=== PATIENT | male | born 1945 | race Caucasian/White ===

== ENCOUNTER 2016-06-15 21:19 | Emergency (ER) | payer OTHER ==
[2016-06-15 21:36] VITALS: BP 137/75; PULSE 82; TEMP 98; BMI 26.3
--- NOTE | 2016-06-15 22:18 | PDOC ---
History of Present Illness - General History Source: Patient Exam Limitations: No Limitations - History of Present Illness Initial Comments: 06/15/16 22:32 The patient is a 70 year old male with no significant past medical history who presents to the ED with sudden onset of right upper quadrant pain that began today. Patient reports he developed right upper quadrant pain around 4pm today with associated nausea and one episode of nonbloody vomiting. Denies diarrhea. He also denies any recent travels or sick contacts. The patient denies fever, chills, cough, SOB, chest pain, and palpitations. <Maggi Owens - Last Filed: 06/15/16 22:32> - General History Source: Patient <Christiano Weaver - Last Filed: 06/16/16 00:35> - General Chief Complaint: Pain Stated Complaint: PAIN Time Seen by Provider: 06/15/16 22:15 Past History <Maggi Owens - Last Filed: 06/15/16 22:32> - Past Medical History Other medical history: polio - Psycho/Social/Smoking Cessation Hx Suicidal Ideation: No Smoking History: Never smoked Number of Cigarettes Smoked Daily: 0 Information on smoking cessation initiated: No Hx Alcohol Use: No Drug/Substance Use Hx: No <Christiano Weaver - Last Filed: 06/16/16 00:35> - Past Medical History Allergies/Adverse Reactions: Allergies Allergy/AdvReac Type Severity Reaction Status Date / Time No Known Allergies Allergy Verified 06/15/16 21:33 Home Medications: Ambulatory Orders Ondansetron [Zofran *Odt*] 4 mg SL TID #30 od.tablet 06/16/16 Pantoprazole Sodium [Protonix] 40 mg PO DAILY #30 tablet. 06/16/16 Review of Systems - Review of Systems Able to Perform ROS?: Yes Comments:: 06/15/16 22:32 CONSTITUTIONAL: Absent: fever, no chills, no fatigue EYES: Absent: visual changes ENT: Absent: ear pain, no sore throat CARDIOVASCULAR: Absent: chest pain, no palpitations RESPIRATORY: Absent: cough, no SOB GI: +right upper quadrant pain, nausea, vomiting Absent: no constipation, no diarrhea GENITOURINARY: Absent: dysuria, no frequency, no hematuria MUSCULOSKELETAL: Absent: back pain, no arthralgia, no myalgia SKIN: Absent: rash NEURO: Absent: headache <Maggi Owens - Last Filed: 06/15/16 22:32> *Physical Exam - Vital Signs Last Vital Signs Temp Pulse Resp BP Pulse Ox 98.0 F 82 14 137/75 98 06/15/16 21:33 06/15/16 21:33 06/15/16 21:33 06/15/16 21:33 06/15/16 21:33 - Physical Exam Comments: 06/15/16 22:33 GENERAL: Well-appearing, well-nourished. No apparent distress. HEENT: Normocephalic, atraumatic. PERRL, EOM intact. CARDIOVASCULAR: Normal S1, S2. Regular rate and rhythm. PULMONARY: Clear to auscultation bilaterally. ABDOMEN: Soft, non-distended, right upper quadrant tenderness. EXTREMITIES: Normal ROM in all four extremities. No gross deformities. SKIN: Warm, dry. No rash NEUROLOGICAL: No focal neurological deficits. <Maggi Owens - Last Filed: 06/15/16 22:32> - Vital Signs Last Vital Signs Temp Pulse Resp BP Pulse Ox 98.0 F 82 14 137/75 98 06/15/16 21:33 06/15/16 21:33 06/15/16 21:33 06/15/16 21:33 06/15/16 21:33 <Christiano Weaver - Last Filed: 06/16/16 00:35> ED Treatment Course - LABORATORY CBC & Chemistry Diagram: 06/15/16 23:31 06/15/16 23:31 <Christiano Weaver - Last Filed: 06/16/16 00:35> Medical Decision Making - Medical Decision Making 06/16/16 00:33 Dr. Weaver: The scribe's documentation has been prepared under my direction and personally reviewed by me in its entirery. I confirm that the note above accurately reflects all work, treatment, procedures, and medical decision making performed by me. <Christiano Weaver - Last Filed: 06/16/16 00:35> *DC/Admit/Observation/Transfer - Attestations Scribe Attestion: 06/15/16 22:33 Documentation prepared by Maggi Owens, acting as medical office rep for Christiano Weaver MD <DavinaMaggi bruno - Last Filed: 06/15/16 22:32> - Discharge Dispostion Admit: No <Christiano Weaver - Last Filed: 06/16/16 00:35> Diagnosis at time of Disposition: Gallstones - Discharge Dispostion Disposition: HOME Condition at time of disposition: Stable - Prescriptions Prescriptions: Pantoprazole Sodium [Protonix] 40 mg PO DAILY #30 tablet. Ondansetron [Zofran *Odt*] 4 mg SL TID #30 od.tablet - Referrals Referrals: Bora Salcido [Non Staff, Medical] - Balwinder Schwartz MD [Staff Physician] - Haseeb Barboza MD [Staff Physician] - - Patient Instructions Printed Discharge Instructions: DI for Gallstones Additional Instructions: Please follow up with your doctor and get referrals for eventual treatment. Take medication as directed. Print Language: SOU[place] KOREAN
[2016-06-15 23:38] LABS: BASOPHIL 0.3 % (0-2.0); EOSINOPHIL 0.1 % (0-4.5); MCH 28.8 pg (25.7-33.7); MEAN CELL VOLUME 84.7 fl (80-96); MEAN PLT VOLUME 8.4 fl (7.5-11.1); NEUTROPHILS 86.9 % (42.8-82.8); PLATELET COUNT 287 K/MM3 (134-434); RDW 13.2 % (11.9-15.9); WHITE BLOOD COUNT 14.6 K/mm3 (4.0-10.0)
[2016-06-16 00:06] LABS: ALBUMIN 3.9 g/dl (3.4-5.0); AMYLASE 80 U/L (25-115); ANION GAP 11 (8-16); CALCIUM 8.5 mg/dL (8.5-10.1); CO2 27 mmol/L (21-32); GLUCOSE,RANDOM 128 mg/dL (74-106); MAGNESIUM 2.1 mg/dL (1.8-2.4)
[2016-06-16 00:09] LABS: ALK PHOS 108 U/L (45-117); BILIRUBIN,TOTAL 0.6 mg/dL (0.2-1.0); CREATININE 0.7 mg/dL (0.7-1.3); SGOT/AST 23 U/L (15-37); SGPT/ALT 28 U/L (12-78); TOT PROT 7.5 g/dl (6.4-8.2)
[2016-06-16 00:18] LABS: INR 1.08 (0.82-1.09); PROTHROMBIN TIME (PATIENT) 11.9 SEC (9.98-11.88)
== END 2016-06-16 00:41 | disposition home or self-care (01) ==
LOC: JER 21:19
DX: K80.20 Calculus of gallbladder without cholecystitis without obstruction (principal)
CPT/HCPCS: 36415; 76705-TC; 80053; 82150; 83690; 83735; 85025; 85610; 99282-25

== ENCOUNTER 2016-07-29 21:29 | Emergency (ER) | payer OTHER ==
[2016-07-29 22:04] VITALS: BP 157/81; PULSE 82; TEMP 99
--- NOTE | 2016-07-29 23:51 | PDOC ---
History of Present Illness - General Chief Complaint: Injury Stated Complaint: FALL/INJURY Time Seen by Provider: 07/29/16 23:14 - History of Present Illness Initial Comments: 07/29/16 23:40 CHIEF COMPLAINT: laceration to scalp HISTORY OF PRESENT ILLNESS: 70 yo M presents to ED s/p fall. Patient and son state he tripped and fell back, they deny any LOC or change in mental status. Denies vomiting, dizziness, headache. No recent travel or sick contacts. PAST MEDICAL HISTORY: Denies past medical history FAMILY HISTORY: Denies SOCIAL HISTORY: Denies tobacco, alcohol, illicit drug use. SURGICAL HISTORY: Denies ALLERGIES: No known drug allergies REVIEW OF SYSTEMS General/Constitutional: Denies fever or chills. Denies weakness, weight change. HEENT: "I hit my head when I fell." Denies change in vision. Denies ear pain or discharge. Denies sore throat. Cardiovascular: Denies chest pain or shortness of breath. Respiratory: Denies cough, wheezing, or hemoptysis. Gastrointestinal: Denies nausea, vomiting, diarrhea or constipation. Denies rectal bleeding. Genitourinary: Denies dysuria, frequency, or change in urination. Musculoskeletal: Denies joint or muscle swelling or pain. Denies neck or back pain. Skin and breasts: Denies rash or easy bruising. Neurologic: Denies headache, vertigo, loss of consciousness, or loss of sensation. PHYSICAL EXAM General Appearance: Well-appearing, appropriately dressed. No apparent distress , no intoxication. HEENT: 2 cm laceration to occipital scalp. EOMI, PERRLA, normal ENT inspection, normal voice, TMs normal, pharynx normal. No conjunctival pallor. No photophobia, scleral icterus. Neck: Supple. Trachea midline. No tenderness, rigidity, carotid bruit, stridor , lymphadenopathy, or thyromegaly. Respiratory/Chest: Lungs CTAB. No shortness of breath, chest tenderness, respiratory distress, accessory muscle use. No crackles, rales, rhonchi, stridor , wheezing, dullness Cardiovascular: RRR. S1, S2. No JVD, murmur, bradycardia, tachycardia. Vascular Pulses: Dorsalis-Pedis (R): 2+, Dorsalis-Pedis (L): 2+ Gastrointestinal/Abdominal: Normal bowel sounds. Abdomen soft, non-distended. No tenderness or rebound tenderness. No organomegaly, pulsatile mass, guarding , hernia, hepatomegaly, splenomegaly. Lymphatic: No adenopathy, tenderness. Musculoskeletal/Extremities: Normal inspection. FROM of all extremities, normal capillary refill. Pelvis Stable. No CVA tenderness. No tenderness to extremities, pedal edema, swelling, erythema or deformity. Integumentary: Appropriate color, dry, warm. 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 Fully oriented, alert. Appropriate mood/affect. Motor strength 5/5. No appreciable EOM palsy, facial droop or sensory deficit. Past History - Past Medical History Allergies/Adverse Reactions: Allergies Allergy/AdvReac Type Severity Reaction Status Date / Time No Known Allergies Allergy Verified 07/29/16 22:01 Home Medications: Ambulatory Orders Acetaminophen [Tylenol] 650 mg PO PRN PRN 06/16/16 Ondansetron [Zofran *Odt*] 4 mg SL TID #30 od.tablet 06/16/16 Pantoprazole Sodium [Protonix] 40 mg PO DAILY #30 tablet. 06/16/16 HTN: Yes - Psycho/Social/Smoking Cessation Hx Suicidal Ideation: No Smoking History: Never smoked Number of Cigarettes Smoked Daily: 0 Hx Alcohol Use: No Drug/Substance Use Hx: No *Physical Exam - Vital Signs Last Vital Signs Temp Pulse Resp BP Pulse Ox 99 F 82 18 157/81 97 07/29/16 22:02 07/29/16 22:02 07/29/16 22:02 07/29/16 22:02 07/29/16 22:02 Procedures - Consent Consent obtained: Verbal - Laceration/Wound Repair Upper Posterior Head Wound Length: to 2.5 cm Wound Explored: clean Wound's Depth, Shape: superficial Irrigated w/ Saline: Yes Wound Repaired With: [place] Medical Decision Making - Medical Decision Making 70 yo M presents to ED s/p fall and lac to head. Lac repair performed (see procedure note). Head CT negative for acute pathology. Advised patient post lac repair instructions, to return in 7-14 days for staple removal and of signs and symptoms for return to ER; patient and son verbalize understanding and agree to plan. *DC/Admit/Observation/Transfer Diagnosis at time of Disposition: Fall Qualifiers: Encounter type: initial encounter Qualified Code(s): W19.XXXA - Unspecified fall, initial encounter Scalp laceration Qualifiers: Encounter type: initial encounter Qualified Code(s): S01.01XA - Laceration without foreign body of scalp, initial encounter - Discharge Dispostion Disposition: HOME Condition at time of disposition: Stable Admit: No - Referrals Referrals: Dion Bojorquez MD [Staff Physician] - - Patient Instructions Printed Discharge Instructions: DI for Laceration Repair -- [place] Additional Instructions: Please keep jonna clean and dry for 24-48 hours. Afterwards you may wash with mild soap/shampoo. Please return in 7-14 days for staple removal. If you experience any fever, nausea, vomiting, diarrhea, change in vision or difficulty speaking, swallowing, or walking, or you you notice redness, swelling , or warmth to the site of injury, or you develop any new or worsening symptoms , please return to the ER. Mantenga las grapas limpias y secas robyn la proxima 24-48 horas. Depues se puede evie con david suave / champ. Vuelva por favor en 7-14 gonzalez para la eliminacin de la grapa. Si experimenta fiebre, nuseas, vmitos, diarrea, cambios en la visin o dificultad para hablar, tragar o caminar, o si nota enrojecimiento, hinchazn o calor en el sitio de la lesin, o si desarrolla s ntomas nuevos o que empeoran, por favor Regresar a la lita de emergencias. Print Language: ITALIAN
[2016-07-30] MEDS ORDERED: LIDOCAINE 1%/EPI 1:100000 (50 ML MULTI DOSE VIAL) ONE (00:35)
== END 2016-07-30 00:48 | disposition home or self-care (01) ==
LOC: JER 21:29
PROC: 0HQ0XZZ Repair Scalp Skin, External Approach (ICD-10-PCS; principal; 2016-07-29)
DX: S01.01XA Laceration without foreign body of scalp, initial encounter (principal); W18.2XXA Fall in (into) shower or empty bathtub, initial encounter; Y93.E1 Activity, personal bathing and showering; Y92.012 Bathroom of single-family (private) house as the place of occurrence of the external cause; I10 Essential (primary) hypertension
CPT/HCPCS: 70450-TC; 99283-25

== ENCOUNTER 2016-08-10 12:04 | Emergency (ER) | payer OTHER ==
[2016-08-10 12:18] VITALS: BP 145/83; PULSE 95; TEMP 97.9; BMI 28.8
--- NOTE | 2016-08-10 13:38 | PDOC ---
Suture Removal/Wound Check HPI - History of Present Illness Chief Complaint: Suture/Staple Removal(Here) Stated Complaint: SUTURES REMOVAL Time Seen by Provider: 08/10/16 13:04 History Source: Yes: Patient Exam Limitations: Yes: No Limitations Treated at: [facility] Date of Last ED visit: 07/30/16 - Previous ED Treatment Type of procedure performed on last visit: Yes: Laceration Repair Tetanus Immunization: Yes: Up to Date Past History - Past Medical History Allergies/Adverse Reactions: Allergies No Known Allergies Allergy (Verified 08/10/16 12:18) Home Medications: Ambulatory Orders Acetaminophen [Tylenol] 650 mg PO PRN PRN 06/16/16 Ondansetron [Zofran *Odt*] 4 mg SL TID #30 od.tablet 06/16/16 Pantoprazole Sodium [Protonix] 40 mg PO DAILY #30 tablet. 06/16/16 General: Yes: no pertinent history - Social History Smoking Status: Never smoked Number of Ciarettes Per Day: 0 Suture Removal/Wound Check PE - Physical Exam Laceration/Wound Check Symptoms: reports: None *Review of Systems - Review of Systems Able to Perform ROS?: Yes Constitutional: No: Symptoms Reported HEENTM: No: Symptoms Reported Respiratory: No: Symptoms reported Cardiac (ROS): No: Symptoms Reported ABD/GI: No: Symptoms Reported : No: Symptoms Reported Musculoskeletal: No: Symptoms Reported Integumentary: Yes: Symptoms Reported Procedures - Additional Procedures Progress: 08/10/16 13:37 3 jonna removed, wound is clean and dry intact no drainage Medical Decision Making - Medical Decision Making 08/10/16 13:37 cc: staple removal left parietal area CDI well healed laceration 3 jonna removed without diffuculty. *DC/Admit/Observation/Transfer Diagnosis at time of Disposition: Removal of staple - Discharge Dispostion Disposition: HOME Condition at time of disposition: Good - Patient Instructions Additional Instructions: wash hair and shower as normal routine you may resume normal activity
== END 2016-08-10 13:41 | disposition home or self-care (01) ==
LOC: JERFT 12:04
DX: Z48.02 Encounter for removal of sutures (principal)
CPT/HCPCS: 99281-25

== ENCOUNTER 2018-08-24 11:50 | Inpatient (IN) | payer MEDICARE, OTHER ==
--- NOTE | 2018-08-24 12:23 | PDOC ---
History of Present Illness - General Chief Complaint: Lightheaded Stated Complaint: DIZZINESS Time Seen by Provider: 08/24/18 12:22 - History of Present Illness Initial Comments: 72 year old male with PMH of HTN and HLD presenting with 3 days of intermittent "room-shifting" sensation worse with movement and co-presenting with mild nausea. Patient states that he stood up from sitting and felt the room was shifting. The symptoms have been intermittent and occasionally completely resolves. He has a mild headache on the most superior portion of his head. Denies chest pain, vomiting, palpitations, FND, visual deficit, or other symptoms. 08/24/18 12:45 Past History - Past Medical History Allergies/Adverse Reactions: Allergies Allergy/AdvReac Type Severity Reaction Status Date / Time No Known Allergies Allergy Verified 08/24/18 11:53 Home Medications: Ambulatory Orders Acetaminophen [Tylenol] 650 mg PO PRN PRN 06/16/16 Ondansetron [Zofran *Odt*] 4 mg SL TID #30 od.tablet 06/16/16 Pantoprazole Sodium [Protonix] 40 mg PO DAILY #30 tablet. 06/16/16 COPD: No HTN: Yes - Suicide/Smoking/Psychosocial Hx Smoking History: Never smoked Number of Cigarettes Smoked Daily: 0 Hx Alcohol Use: No Drug/Substance Use Hx: No Substance Use Type: None Review of Systems - Review of Systems Constitutional: No: See HPI, Chills, Diaphoresis, Fever HEENTM: No: Eye Pain, Blurred Vision, Tearing Respiratory: No: Cough, Orthopnea, Shortness of Breath Cardiac (ROS): No: Chest Pain, Edema, Irregular Heart Rate ABD/GI: Yes: Nausea. No: Diarrhea, Vomiting : No: Burning, Dysuria, Discharge, Frequency Musculoskeletal: No: Back Pain, Gout, Joint Pain Integumentary: No: Bruising, Erythema, Flushing Neurological: Yes: Headache, Dizziness. No: Numbness, Paresthesia Psychiatric: No: Anxiety, Depression Hematologic/Lymphatic: No: Anemia, Blood Clots, Easy Bleeding *Physical Exam - Vital Signs Last Vital Signs Temp Pulse Resp BP Pulse Ox 98.2 F 63 64 H 144/90 97 08/24/18 11:53 08/24/18 11:53 08/24/18 11:53 08/24/18 11:53 08/24/18 11:53 - Physical Exam General Appearance: Yes: Nourished, Appropriately Dressed. No: Apparent Distress HEENT: positive: EOMI, KATE, Normal ENT Inspection. negative: Normal Voice Neck: positive: Trachea midline, Normal Thyroid, Supple. negative: Tender, Rigid Respiratory/Chest: positive: Lungs Clear, Normal Breath Sounds. negative: Chest Tender, Respiratory Distress Cardiovascular: positive: Regular Rhythm, Regular Rate Gastrointestinal/Abdominal: positive: Normal Bowel Sounds, Flat, Soft. negative : Tender Lymphatic: negative: Adenopathy, Tenderness Musculoskeletal: negative: Normal Inspection, Decreased Range of Motion Extremity: positive: Normal Capillary Refill, Normal Inspection, Normal Range of Motion. negative: Tender Integumentary: positive: Normal Color, Dry, Warm Neurologic: positive: Fully Oriented, Alert, Normal Mood/Affect, Normal Response , Motor Strength 07/16 ED Treatment Course - LABORATORY CBC & Chemistry Diagram: 08/24/18 13:00 08/24/18 13:00 Medical Decision Making - Medical Decision Making 72 year old male with HTN and HLD presenting with intermittent vertiginous symptoms for the past three days. No FND, paresthesias, visual symptoms, or weakness. Labs, EKG, and CT head are non-acute. Patient vomited first dose of meclizine and was hydrated with 1 L NS and feels mildly improved overall but still nauseous. Given zofran 4 IV and 1 mg Ativan IV with plan to repeat dose of meclizine. Discussed with Dr. Chaudhary of Neurology and he agrees with plan. He does nto feel that this patient needs an MRI at this point in time. 08/24/18 14:47
[2018-08-24] MEDS ORDERED: MECLIZINE HCL 12.5 MG TABLET PO ONE (12:44)
[2018-08-24] MEDS ORDERED: SODIUM CHLORIDE 0.9% 500 ML INFUS.BAG IV ONE (13:04)
[2018-08-24] MEDS: MECLIZINE HCL 25 MG TABLET (FP) PO ONE (13:05)
[2018-08-24] MEDS ORDERED: MECLIZINE HCL 25 MG TABLET (FP) ONE (13:10)
[2018-08-24 13:22] LABS: BASO % 0.2 % (0-2.0); EOS % 0.6 % (0-4.5); HEMATOCRIT 44.1 % (35.4-49); LYMPH % 13.3 % (8-40); MCH 29.8 pg (25.7-33.7); MEAN CELL VOLUME 87.5 fl (80-96); MEAN PLT VOLUME 8.9 fl (7.5-11.1); MONO % 6.3 % (3.8-10.2); NEUT % 79.6 % (42.8-82.8); RBC 5.04 M/mm3 (4.00-5.60); RDW 13.5 % (11.9-15.9); WHITE BLOOD COUNT 10.5 K/mm3 (4.0-10.0)
[2018-08-24 13:28] LABS: PLATELET COUNT 297 K/MM3 (134-434)
[2018-08-24 13:33] LABS: INR 1.11 (0.83-1.09); PROTHROMBIN TIME (PATIENT) 13.1 SEC (9.7-13.0)
[2018-08-24 13:41] LABS: ALBUMIN 3.9 g/dl (3.4-5.0); BILIRUBIN,TOTAL 0.6 mg/dL (0.2-1); BLOOD UREA NITROGEN 15.2 mg/dL (7-18); CALCIUM 8.8 mg/dL (8.5-10.1); CREATININE 0.8 mg/dL (0.55-1.3); POTASSIUM 4.1 mmol/L (3.5-5.1); TOT PROT 7.4 g/dl (6.4-8.2)
[2018-08-24] MEDS ORDERED: ONDANSETRON 4 MG/2 ML VIAL IVPUSH ONE (13:59)
[2018-08-24] MEDS ORDERED: ONDANSETRON 4 MG/2 ML VIAL ONE (14:07)
[2018-08-24] MEDS ORDERED: MECLIZINE HCL 25 MG TABLET (FP) PO ONE (14:13)
[2018-08-24] MEDS ORDERED: LORazepam 2 MG/ML SDV VIAL ONE (15:23)
--- NOTE | 2018-08-24 17:25 | PDOC ---
Documentation entered by Alfonso Swanson SCRIBE, acting as scribe for Emilia Barrett MD. Emilia Barrett MD: This documentation has been prepared by the [place] Daniel, SCRIBE, under my direction and personally reviewed by me in its entirety. I confirm that the documentation accurately reflects all work, treatment, procedures, and medical decision making performed by me. Attending Attestation - Resident Resident Name: Diaz Mckeon - ED Attending Attestation I have performed the following: I have examined & evaluated the patient, The case was reviewed & discussed with the resident, I agree w/resident's findings & plan, Exceptions are as noted - HPI HPI: 08/24/18 12:42 The patient is a 72 year old male with a past medical history of HTN and HLD here today for evaluation of room shifting sensation. The patient reports that his symptoms started 3 days ago after standing up from a sitting position and describes it as the room shifting around him that is worse with positional changes. He also notes that he has a mild gradual onset posterio-superior headache that started yesterday and mild nausea with decreased PO intake. Patient denies focal weakness/numbness. Denies fever, chills. Denies chest pain , palpitations, shortness of breath. Denies vomiting, diarrhea, abdominal pain. Denies urinary sxs. Allergies: NKA - Physicial Exam PE: 08/24/18 17:13 GENERAL: Awake, alert, and fully oriented, appears uncomfortable with eyes closed EYES: PERRLA, EOMI, sclera anicteric, conjunctiva clear. +3-4 beats nystagmus on R gaze ENT: Oropharynx clear without exudates. Moist mucosa NECK: Normal ROM, supple, no lymphadenopathy, JVD, or masses LUNGS: Breath sounds equal, clear to auscultation bilaterally. No wheezes, and no crackles HEART: Regular rate and rhythm, normal S1 and S2, no murmurs, rubs or gallops ABDOMEN: Soft, nontender, normoactive bowel sounds. No guarding, no rebound. No masses EXTREMITIES: Normal range of motion, no edema. No cords, erythema, or tenderness NEUROLOGICAL: Normal speech, cranial nerves intact, negative pronator drift, 5/ 5 strength in all 4 extremities, normal sensation to light touch in all 4 extremities, difficulty with FNF, ataxic gait, normal tone SKIN: Warm, Dry, normal turgor, no rashes or lesions noted. - Medical Decision Making 08/24/18 17:16 72yo M hx HTN, HL presents to the ED with unsteady gait, nystagmus, gradual onset headache Vitals wnl (RR documented as 64, but this was HR. His RR is 18) Exam with unsteady gait, some difficulty with FNF, and nystagmus that self extinguishes Concern for BPPV vs CVA Labs, CTH unremarkable Despite meclizine, zofran, ativan, pt continues to be unsteady on his feet Plan for admission, MRI, and neuro c/s (case discussed with Dr. Kuhn by Dr. Mckeon) 08/24/18 18:00 Case discussed with resident physician Dr. Vishal Conway, pt accepted for admission to Dr. Ghotra. Case discussed in detail with admitting physician including history, physical exam and ancillary studies. Admitting physician has assumed care for the patient, will follow all pending diagnostics and will complete the evaluation and treatment. 08/24/18 18:08 MRI done, pt back in ED Pt is currently being evaluated by inpt team at the bedside Heart Score/ECG Review #1 08/24/18 17:23 Twelve-lead EKG was performed and reviewed by me. Normal sinus rhythm, rate 67. Normal axis and intervals. No ST elevations. Diffuse T-wave flattening inferiorly and laterally. No previous EKG to compare.
--- NOTE | 2018-08-24 18:40 | HP ---
CHIEF COMPLAINT: Dizziness + Unsteady Gait HISTORY OF PRESENT ILLNESS: Pt is a 72 y/o M with a significant past medical history of HLD and HTN who presented to [facility] due to a 3 day h/o vertiginous symptoms. Pt endorses that he has been experiencing nausea and vomiting, particularly when he is ambulating and on his feet. Pt's symptoms are partially relieved when he is supine and immobile. Pt states he has not tried any OTC medication to relieve his symptoms; furthermore, pt states he has never experienced these symptoms before. Denies any recent illnesses. Denies chest pain, palpitations, shortness of breath, or sick contacts. Endorses burning with urination x 8 days. PMH as above Social: Former Smoker. Smoked 1 PPDx 25 years. Quit 20 years ago. Previous heavy drinker. Cannot quantity, states " a lot". Denies illciit drug use. FH: Non-Contributory SurgHx: Denies Allergies: Denies ER course was notable for: (1) 2 L NS (2) Zofran, Meclizine (3) CT Head Neg HOME MEDICATIONS: Home Medications Medication Instructions Recorded Acetaminophen [Tylenol] 650 mg PO PRN PRN 06/16/16 Ondansetron [Zofran *Odt*] 4 mg SL TID #30 od.tablet 06/16/16 Pantoprazole Sodium [Protonix] 40 mg PO DAILY #30 tablet. 06/16/16 REVIEW OF SYSTEMS CONSTITUTIONAL: Absent: fever, chills, diaphoresis, generalized weakness, malaise, loss of appetite, weight change HEENT: Absent: rhinorrhea, nasal congestion, throat pain, throat swelling, difficulty swallowing, mouth swelling, ear pain, eye pain, visual changes CARDIOVASCULAR: Absent: chest pain, syncope, palpitations, irregular heart rate, lightheadedness , peripheral edema RESPIRATORY: Absent: cough, shortness of breath, dyspnea with exertion, orthopnea, wheezing, stridor, hemoptysis GASTROINTESTINAL: Absent: abdominal pain, abdominal distension, nausea, vomiting, diarrhea, constipation, melena, hematochezia GENITOURINARY: Absent: dysuria, frequency, urgency, hesitancy, hematuria, flank pain, genital pain MUSCULOSKELETAL: Absent: myalgia, arthralgia, joint swelling, back pain, neck pain SKIN: Absent: rash, itching, pallor HEMATOLOGIC/IMMUNOLOGIC: Absent: easy bleeding, easy bruising, lymphadenopathy, frequent infections ENDOCRINE: Absent: unexplained weight gain, unexplained weight loss, heat intolerance, cold intolerance NEUROLOGIC: PRESENT: headache, dizziness, unsteady gait PSYCHIATRIC: Absent: anxiety, depression, suicidal or homicidal ideation, hallucinations. PHYSICAL EXAMINATION Vital Signs - 24 hr 08/24/18 11:53 Temperature 98.2 F Pulse Rate 63 Respiratory 64 H Rate Blood Pressure 144/90 O2 Sat by Pulse 97 Oximetry (%) GENERAL: AAOx3, Mild Distress HEAD: nNormal with no signs of trauma. EYES: Atraumatic/Normocephalic EARS, NOSE, THROAT: MMM LUNGS: CTAB HEART: RRR S1S2 ABDOMEN: Soft, NDNT MUSCULOSKELETAL: FROM throughout . LOWER EXTREMITIES: No peripheral edema. NEUROLOGICAL: Ataxic gait PSYCHIATRIC: Cooperative. Good eye contact. Appropriate mood and affect. SKIN: Warm, dry, normal turgor, no rashes or lesions noted, normal capillary refill. Laboratory Results - last 24 hr 08/24/18 08/24/18 08/24/18 13:00 13:00 13:00 WBC 10.5 H RBC 5.04 Hgb 15.0 Hct 44.1 MCV 87.5 MCH 29.8 MCHC 34.0 RDW 13.5 Plt Count 297 MPV 8.9 Absolute Neuts (auto) 8.3 H Neutrophils % 79.6 Lymphocytes % 13.3 D Monocytes % 6.3 Eosinophils % 0.6 D Basophils % 0.2 Nucleated RBC % 0 PT with INR 13.10 H INR 1.11 H Sodium 139 Potassium 4.1 Chloride 106 Carbon Dioxide 30 Anion Gap 3 L BUN 15.2 Creatinine 0.8 Est GFR (CKD-EPI)AfAm 104.90 Est GFR (CKD-EPI)NonAf 90.51 Random Glucose 117 H Calcium 8.8 Total Bilirubin 0.6 AST 19 ALT 27 Alkaline Phosphatase 98 Total Protein 7.4 Albumin 3.9 ASSESSMENT/PLAN: Pt is a 72 y/o M with a significant past medical history of HLD and HTN who presented to [facility] due to a 3 day h/o vertiginous symptoms. #Vertigo 2/2 posterior stroke, vestiblitis , or BPV. -Meclizine 25 mg PO TID Gene, MRI Brain, MRA Neck to assess Vertebral arteries - Zofran PRN -Neurology on board -Orthostatic VS #HTN -Losartan 100 Daily -Metoprolol XL 50 Daily #HLD -Atorvastatin 20 Daily FEN NS@100cc/hr Monitor Electrolytes Salt Controlled Diet DVT ppx: HEPSQTID Dispo: Med-Surg Visit type - Emergency Visit Emergency Visit: Yes ED Registration Date: 08/24/18 Care time: The patient presented to the Emergency Department on the above date and was hospitalized for further evaluation of their emergent condition. - New Patient This patient is new to me today: Yes Date on this admission: 08/24/18 - Critical Care Critical Care patient: No
--- NOTE | 2018-08-24 18:42 | PN ---
Teaching Attending Note Name of Resident: Vishal Conway ATTENDING PHYSICIAN STATEMENT I saw and evaluated the patient. I reviewed the resident's note and discussed the case with the resident. I agree with the resident's findings and plan as documented. SUBJECTIVE: CC: vertigo, unsteady gait and nausea. HPI : 72 y/o man with h/o HTN, and HLP,Polio with residual RLE weakness who presented with vertigo, unsteady gait and nausea/Vomiting sx started 3 days ago with vertigo ( spinning of room ) , that is present all the times and worse when he walks. moving in bed makes him worse. he denies light headedness. he has numbness in hands x 3 days . no weakness ( RLE weakness form Polio ) . He denies fever or chills, or change in vision. denies recent URI. He denies anything like that in past. admits to dysuria. he denies falls or head trauma. vertigo is associated with N/V. OBJECTIVE: VS reviewed. Awake, alert , oriented x 3. HEENT: NC, AT, EOMI, round equal pupils, reactive to light, + horizontal ( R lateral gaze), and vertical ( upward) nystagmus. MMM. CV: RRR, no MRG Lungs: CTAB Abd: soft, NT,Nd, ML BS Ext : R LE muscle atrophy. No edeme aor erythema Neuro: EOMI, round equal pupils, reactive to light, + horizontal ( R lateral gaze), and vertical ( upward) nystagmus. no facial droop. tongue at mid line. nl shoulder shrug. UE: 5/5 proximally and distally. RLE: hip flexion 5/5 , knee flexion and extension 5/5. ankle dorsiflexion 4/5, ankle plantar flexion 5/5 LLE: hip flexion 5/5 , knee flexion and extension 5/5. ankle dorsiflexion 5/5, ankle plantar flexion 5/5 Reflexes; 2+ knee jerk , and 2+ biceps. 2+ BR. cerebellar: NL nose to finger. Nl heel to fink b/l Gait ( tested by resident) , unsteady and ataxic, vomited [place] + with nystagmus on R ASSESSMENT AND PLAN: 72 y/o man with h/o HTN, and HLP,Polio with residual RLE weakness who presented with vertigo, unsteady gait and nausea/Vomiting . 1- Severe Vertigo: DDX includes posterior stroke, vestiblitis , and BPV. less likely orthostatic hypotension vertical nystagmus might indicate central process. - could not tolerate MRI - will repeat MRI of brain and add MRA of neck in am - in mean time: IVF, stnding meclizine, and zofran PRN. - neuro eval - fall precautions - orthostatic VS 2- H/O HTN: will confirm meds and resume 3- HLP : confirm and resume meds DVT PX : Sq heparin
[2018-08-24] MEDS: ATORVASTATIN CA 20 MG TABLET (FP) PO SCH (22:15)
[2018-08-24] MEDS: MECLIZINE HCL 25 MG TABLET (FP) PO SCH (22:15)
[2018-08-24] MEDS: HEPARIN NA (PORCINE) 5,000 UNITS/ML 1ML VIAL SQ SCH (22:15)
[2018-08-24] MEDS: SODIUM CHLORIDE 1,000 ML IV SCH (22:20)
[2018-08-25] MEDS: MECLIZINE HCL 25 MG TABLET (FP) PO SCH ×3 (05:38→22:14)
[2018-08-25] MEDS: HEPARIN NA (PORCINE) 5,000 UNITS/ML 1ML VIAL SQ SCH ×3 (05:38→22:14)
[2018-08-25 07:03] VITALS: BMI 25.8
[2018-08-25 07:52] LABS: INR 1.13 (0.83-1.09); PROTHROMBIN TIME (PATIENT) 13.3 SEC (9.7-13.0)
[2018-08-25 07:53] LABS: ACTIVATED PTT 30.1 SECONDS (25.2-36.5)
[2018-08-25 08:22] LABS: ALBUMIN 3.2 g/dl (3.4-5.0); BILIRUBIN,TOTAL 0.6 mg/dL (0.2-1); BLOOD UREA NITROGEN 11.2 mg/dL (7-18); CALCIUM 7.9 mg/dL (8.5-10.1); CREATININE 0.7 mg/dL (0.55-1.3); MAGNESIUM 2.2 mg/dL (1.8-2.4); PHOSPHOROUS 2.8 mg/dL (2.5-4.9); POTASSIUM 3.5 mmol/L (3.5-5.1); TOT PROT 6.2 g/dl (6.4-8.2)
[2018-08-25 08:26] LABS: BASO % 0.5 % (0-2.0); HEMATOCRIT 41.4 % (35.4-49); HEMOGLOBIN 14.1 GM/dL (11.7-16.9); MCH 29.4 pg (25.7-33.7); MCHC 34.1 g/dl (32.0-35.9); MEAN CELL VOLUME 86.3 fl (80-96); MEAN PLT VOLUME 9.3 fl (7.5-11.1); MONO % 8.7 % (3.8-10.2); NEUT % 67.8 % (42.8-82.8); PLATELET COUNT 280 K/MM3 (134-434); RDW 13.1 % (11.9-15.9); WHITE BLOOD COUNT 8.5 K/mm3 (4.0-10.0)
[2018-08-25 09:33] LABS: PH,URINE 6.5 (5.0-8.0); URINE APPEARANCE CLEAR; URINE BILIRUBIN NEGATIVE (NEGATIVE); URINE COLOR YELLOW; URINE GLUCOSE (UA) NEGATIVE (NEGATIVE); URINE KETONE NEGATIVE (NEGATIVE); URINE LEUK ESTERASE NEGATIVE (NEGATIVE); URINE NITRITE NEGATIVE (NEGATIVE); URINE PROTEIN NEGATIVE (NEGATIVE); URINE UROBILINOGEN 0.2 mg/dL (0.2-1.0)
--- NOTE | 2018-08-25 09:43 | CON.NEURO ---
Consult - Alcohol/Substance Use Hx Alcohol Use: No - Smoking History Smoking history: Never smoked Aproximately how many cigarettes per day: 0 Home Medications - Allergies Allergies/Adverse Reactions: Allergies Allergy/AdvReac Type Severity Reaction Status Date / Time No Known Allergies Allergy Verified 08/24/18 11:53 - Home Medications Home Medications: Ambulatory Orders Atorvastatin Ca [Lipitor] 20 mg PO HS 08/24/18 Levothyroxine [Synthroid -] 25 mg PO DAILY 08/24/18 Losartan Potassium [Cozaar] 100 mg PO DAILY 08/24/18 Metoprolol Succinate [Toprol Xl] 50 mg PO DAILY 08/24/18 Physical Exam-Neuro Vital Signs: Vital Signs Temperature 98.1 F 08/25/18 06:00 Pulse Rate 83 08/25/18 06:00 Respiratory Rate 20 08/25/18 06:00 Blood Pressure 139/80 08/25/18 06:00 O2 Sat by Pulse Oximetry (%) 98 08/24/18 21:00 Labs: CBC, BMP 08/25/18 07:02 08/25/18 07:02 INR, PTT INR 1.13 (0.83-1.09) H 08/25/18 07:02 Assessment/Plan cc Vertigo for four days HPI 72 year old male history fo HTN,HLD. He came for feeling vertigo feeling. He denies any headhace, no dysphagia, dysarthria, no diplopia, no weakness or numbmess. He is getting nasuea and vomting. It is worse when he gets up. He describes as spinning senation. His ct head is normal. his mri ofbrain ( [facility] imaging ) normal. H ecould not do mri of brain. Patient is slightly better. PMH as above Social: Former Smoker. Smoked 1 PPDx 25 years. Quit 20 years ago. Previous heavy drinker. Cannot quantity, states " a lot". Denies illciit drug use. FH: Non-Contributory ROS,FH reviewed in chart NKDA HOME MEDICATIONS: Home Medications Medication Instructions Recorded Acetaminophen [Tylenol] 650 mg PO PRN PRN 06/16/16 Ondansetron [Zofran *Odt*] 4 mg SL TID #30 od.tablet 06/16/16 Pantoprazole Sodium [Protonix] 40 mg PO DAILY #30 tablet. 06/16/16 Neurological Examination Alert oriented x 3, speech is normal neck is supple afebrile and normotensive eomi, pupils reactive, there is mild right sided nystagmus no motor weakness and sensory is normal Assessment/Plan 1. Most likley BPPV, Clinically unlikely to be stroke or cerebellar dysfunction. Plan: continue syptomatic treatment, including meclizine and ativan prn -PT for Eda procedure Thanking you so much Bert Bojorquez MD
[2018-08-25] MEDS ORDERED: PATIENT'S OWN MEDICATION (NON-FORMULARY) (Losartan Potassium [Cozaar] 100 MG) PO SCH (10:00)
[2018-08-25] MEDS ORDERED: LOSARTAN POTASSIUM 100 MG TABLET PO SCH (10:00)
[2018-08-25] MEDS ORDERED: PT OWN MED DRAWER 7, Y5N ONE (10:43)
[2018-08-25] MEDS: LEVOTHYROXINE NA 25 MCG TABLET (FP) PO SCH (10:48)
[2018-08-25] MEDS: LOSARTAN POTASSIUM 50 MG TABLET (FP) PO SCH (10:50)
--- NOTE | 2018-08-25 11:50 | EKG ---
Test Reason : Blood Pressure : / mmHG Vent. Rate : 067 BPM Atrial Rate : 067 BPM P-R Int : 166 ms QRS Dur : 094 ms QT Int : 408 ms P-R-T Axes : 058 028 034 degrees QTc Int : 431 ms NORMAL SINUS RHYTHM NONSPECIFIC T WAVE ABNORMALITY ABNORMAL ECG NO PREVIOUS ECGS AVAILABLE Confirmed by INÉS OTERO MD ([id number]) on 08/25/2018 11:49:54 AM Referred By: Confirmed By:INÉS OTERO MD
[2018-08-25] MEDS: MECLIZINE HCL 25 MG TABLET (FP) PO ONE (13:36)
--- NOTE | 2018-08-25 15:59 | PN ---
Physical Exam: SUBJECTIVE: Patient seen and examined at bedside. Endorses dizziness when he is supine and opening his eyes. OBJECTIVE: Vital Signs Period Temp Pulse Resp BP Sys/Escalona Pulse Ox Last 24 Hr 97.5 F-98.2 F 72-96 16-20 135-145/74-83 97-98 GENERAL: NAD HEAD: AT/NC EYES: EOMI Sclera Clear EARS, NOSE, THROAT: MMM LUNGS: CTAB HEART: RRR S1S2 ABDOMEN: Soft, NDNT MUSCULOSKELETAL: FROM throughout . LOWER EXTREMITIES: No peripheral edema. NEUROLOGICAL: Ataxic gait, CN 2-12 intact, Strength decreased left lower extremity 3/5. SILT. Laboratory Results - last 24 hr 08/25/18 08/25/18 08/25/18 06:36 07:02 07:02 WBC 8.5 RBC 4.80 Hgb 14.1 Hct 41.4 MCV 86.3 MCH 29.4 MCHC 34.1 RDW 13.1 Plt Count 280 MPV 9.3 Absolute Neuts (auto) 5.8 Neutrophils % 67.8 Lymphocytes % 22.0 D Monocytes % 8.7 Eosinophils % 1.0 Basophils % 0.5 Nucleated RBC % 0 PT with INR 13.30 H INR 1.13 H PTT (Actin FS) 30.1 Sodium Potassium Chloride Carbon Dioxide Anion Gap BUN Creatinine Est GFR (CKD-EPI)AfAm Est GFR (CKD-EPI)NonAf Random Glucose Calcium Phosphorus Magnesium Total Bilirubin AST ALT Alkaline Phosphatase Total Protein Albumin TSH Urine Color Yellow Urine Appearance Clear Urine pH 6.5 Ur Specific [place] 1.007 L Urine Protein Negative Urine Glucose (UA) Negative Urine Ketones Negative Urine Blood Negative Urine Nitrite Negative Urine Bilirubin Negative Urine Urobilinogen 0.2 Ur Leukocyte Esterase Negative 08/25/18 07:02 WBC RBC Hgb Hct MCV MCH MCHC RDW Plt Count MPV Absolute Neuts (auto) Neutrophils % Lymphocytes % Monocytes % Eosinophils % Basophils % Nucleated RBC % PT with INR INR PTT (Actin FS) Sodium 143 Potassium 3.5 Chloride 110 H Carbon Dioxide 25 Anion Gap 9 BUN 11.2 Creatinine 0.7 Est GFR (CKD-EPI)AfAm 110.82 Est GFR (CKD-EPI)NonAf 95.61 Random Glucose 93 Calcium 7.9 L Phosphorus 2.8 Magnesium 2.2 Total Bilirubin 0.6 AST 16 ALT 23 Alkaline Phosphatase 78 Total Protein 6.2 L Albumin 3.2 L TSH 0.43 Urine Color Urine Appearance Urine pH Ur Specific [place] Urine Protein Urine Glucose (UA) Urine Ketones Urine Blood Urine Nitrite Urine Bilirubin Urine Urobilinogen Ur Leukocyte Esterase Active Medications Generic Name Dose Route Start Last Admin Trade Name Dwayneq PRN Reason Stop Dose Admin Atorvastatin Calcium 20 mg 08/24/18 22:00 08/24/18 22:15 Lipitor - PO 20 mg HS GENE Administration Heparin Sodium (Porcine) 5,000 unit 08/24/18 22:00 08/25/18 13:38 Heparin - SQ 5,000 unit TID GENE Administration Sodium Chloride 1,000 mls @ 100 mls/hr 08/24/18 19:15 08/24/18 22:20 Normal Saline - IV 100 mls/hr ASDIR GENE Administration Levothyroxine Sodium 25 mcg 08/25/18 10:00 08/25/18 10:48 Synthroid - PO 25 mcg DAILY GENE Administration Losartan Potassium 100 mg 08/25/18 11:00 08/25/18 10:50 Cozaar - PO 100 mg DAILY GENE Administration Meclizine HCl 25 mg 08/24/18 22:00 08/25/18 13:36 Antivert - PO 25 mg TID GENE Administration Metoprolol Succinate 50 mg 08/25/18 10:00 08/25/18 10:48 Toprol Xl - PO 50 mg DAILY GENE Administration ASSESSMENT/PLAN: Pt is a 72 y/o M with a significant past medical history of HLD and HTN who presented to [facility] due to a 3 day h/o vertiginous symptoms. #Vertigo 2/2 posterior stroke, vestiblitis , or BPV. -Meclizine 25 mg PO TID Gene, MRI Brain negative for any acute pathology though patient could not complete the , majority of the study. Repeat Brain MRI, MRA Neck to assess Vertebral arteries -Graham PRN -Neurology on board--> Dr Bojorquez -Orthostatic VS #HTN -Losartan 100 Daily -Metoprolol XL 50 Daily #HLD -Atorvastatin 20 Daily FEN NS@100cc/hr Monitor Electrolytes Salt Controlled Diet DVT ppx: HEPSQTID Dispo: Med-Surg Visit type - Emergency Visit Emergency Visit: Yes ED Registration Date: 08/24/18 Care time: The patient presented to the Emergency Department on the above date and was hospitalized for further evaluation of their emergent condition. - New Patient This patient is new to me today: No - Critical Care Critical Care patient: No - Discharge Referral Referred to [facility] Med P.C.: No
--- NOTE | 2018-08-25 17:48 | PN ---
Teaching Attending Note Name of Resident: Carlos Morfin ATTENDING PHYSICIAN STATEMENT I saw and evaluated the patient. I reviewed the resident's note and discussed the case with the resident. I agree with the resident's findings and plan as documented. SUBJECTIVE: No fever or chills . No COLLIER . vertigo is better , and only present when he moves in bed and when he sits up. No nausea. OBJECTIVE: NAD CV: RRR, no MRG Lungs: CTAB Ext : R LE muscle atrophy. No edema aor erythema Neuro: EOMI, round equal pupils, reactive to light, + horizontal ( R lateral gaze), and vertical ( upward) nystagmus. no facial droop. tongue at mid line. nl shoulder shrug. UE: 5/5 proximally and distally. RLE: hip flexion 5/5 , knee flexion and extension 5/5. ankle dorsiflexion 4/5, ankle plantar flexion 5/5 LLE: hip flexion 5/5 , knee flexion and extension 5/5. ankle dorsiflexion 5/5, ankle plantar flexion 5/5 Reflexes; 2+ knee jerk , and 2+ biceps. 2+ BR. ASSESSMENT AND PLAN: 72 y/o man with h/o HTN, and HLP,Polio with residual RLE weakness who presented with vertigo, unsteady gait and nausea/Vomiting . 1- Severe Vertigo: slightly improved with meclizine. - MRI of brain and MRA of neck are pending - EPLY Maneuver - cont meclizine and IVF 2- H/O HTN: cont losartan and toprol 3- HLP : cont lipitor DVT PX : Sq heparin agrees to rehab if he does not pass PT
[2018-08-25] MEDS: SODIUM CHLORIDE 1,000 ML IV SCH ×2 (22:14→23:23)
[2018-08-25] MEDS: ATORVASTATIN CA 20 MG TABLET (FP) PO SCH (22:14)
[2018-08-26] MEDS: HEPARIN NA (PORCINE) 5,000 UNITS/ML 1ML VIAL SQ SCH ×3 (06:34→21:32)
[2018-08-26] MEDS: MECLIZINE HCL 25 MG TABLET (FP) PO SCH ×3 (06:35→21:32)
[2018-08-26 08:45] LABS: BLOOD UREA NITROGEN 9.9 mg/dL (7-18); CALCIUM 8.6 mg/dL (8.5-10.1); CREATININE 0.7 mg/dL (0.55-1.3); MAGNESIUM 2.4 mg/dL (1.8-2.4); PHOSPHOROUS 2.6 mg/dL (2.5-4.9); POTASSIUM 3.7 mmol/L (3.5-5.1)
[2018-08-26 08:47] LABS: HEMATOCRIT 43.4 % (35.4-49); MCH 29.8 pg (25.7-33.7); MCHC 34.5 g/dl (32.0-35.9); MEAN CELL VOLUME 86.4 fl (80-96); MEAN PLT VOLUME 9.7 fl (7.5-11.1); PLATELET COUNT 278 K/MM3 (134-434); RBC 5.03 M/mm3 (4.00-5.60); RDW 13.6 % (11.9-15.9)
[2018-08-26] MEDS: LEVOTHYROXINE NA 25 MCG TABLET (FP) PO SCH (09:21)
[2018-08-26] MEDS: LOSARTAN POTASSIUM 50 MG TABLET (FP) PO SCH (09:21)
[2018-08-26] MEDS: SODIUM CHLORIDE 1,000 ML IV SCH (09:29)
--- NOTE | 2018-08-26 14:09 | PN ---
Teaching Attending Note Name of Resident: Carlos Morfin ATTENDING PHYSICIAN STATEMENT I saw and evaluated the patient. I reviewed the resident's note and discussed the case with the resident. I agree with the resident's findings and plan as documented. SUBJECTIVE: No fever or chills. No COLLIER , no tingling or weakness. vertigo is better , but still bad when he gets up OBJECTIVE: NAD CV: RRR, no MRG Lungs: CTAB Ext : R LE muscle atrophy. No edemaa or erythema Neuro: EOMI, round equal pupils, reactive to light, + horizontal nystagmus ( R lateral gaze), No vertical nystagmus . no facial droop. tongue at mid line. nl shoulder shrug. UE: 5/5 proximally and distally. RLE: hip flexion 5/5 , knee flexion and extension 5/5. ankle dorsiflexion 4/5, ankle plantar flexion 5/5 LLE: hip flexion 5/5 , knee flexion and extension 5/5. ankle dorsiflexion 5/5, ankle plantar flexion 5/5 Reflexes; 2+ knee jerk , and 2+ biceps. 2+ BR. ASSESSMENT AND PLAN: 72 y/o man with h/o HTN, and HLP,Polio with residual RLE weakness who presented with vertigo, unsteady gait and nausea/Vomiting . 1- Severe Vertigo: slightly improved with meclizine. - MRI of brain and MRA of neck are pending read - EPLY Maneuver - cont meclizine and dc IVF 2- H/O HTN: cont losartan and toprol 3- HLP : cont lipitor DVT PX : Sq heparin patient does not qualify for SNF.
--- NOTE | 2018-08-26 15:42 | PN ---
Progress Note (short form) - Note Progress Note: 72 year old male history fo HTN,HLD. He came for feeling vertigo feeling. He denies any headhace, no dysphagia, dysarthria, no diplopia, no weakness or numbmess. He is getting nasuea and vomting. It is worse when he gets up. He describes as spinning senation. His ct head is normal. his mri ofbrain ( [facility] imaging ) normal. H ecould not do mri of brain. Patient is slightly better. Jennie has right leg weakness and muscle loss due to childhood polio. He is feeling better. Neurological Examination Alert oriented x 3, speech is normal neck is supple afebrile and normotensive eomi, pupils reactive, there is mild right sided nystagmus Right leg is weaker due to childhood bppv ct head and mri of brain is unremarkable Assessment/Plan 1. Most likley BPPV, Clinically unlikely to be stroke or cerebellar dysfunction. Plan: continue syptomatic treatment, including meclizine and ativan prn Patient is feeling better. Thanking you so much Bert Bojorquez MD
--- NOTE | 2018-08-26 16:45 | PN ---
Physical Exam: SUBJECTIVE: Patient seen and examined at bedside. No events overnight. States dizziness improved. OBJECTIVE: Vital Signs Period Temp Pulse Resp BP Sys/Escalona Pulse Ox Last 24 Hr 97.5 F-98.9 F 60-78 20-20 116-152/43-94 98-98 GENERAL: The patient is awake, alert, and fully oriented, in no acute distress. HEAD: Normal with no signs of trauma. EYES: PERRL, extraocular movements intact, sclera anicteric, conjunctiva clear. No ptosis. LUNGS: Breath sounds equal, clear to auscultation bilaterally, no wheezes, no crackles, no accessory muscle use. HEART: Regular rate and rhythm, S1, S2 without murmur, rub or gallop. ABDOMEN: Soft, nontender, nondistended, normoactive bowel sounds, no guarding, no rebound, no hepatosplenomegaly, no masses. EXTREMITIES: 2+ pulses, warm, well-perfused, no edema. NEUROLOGICAL: Cranial nerves II through X grossly intact. Normal speech, gait not observed. SKIN: Warm, dry, normal turgor, no rashes or lesions noted Laboratory Results - last 24 hr 08/26/18 08/26/18 07:48 07:49 WBC 7.0 RBC 5.03 Hgb 15.0 Hct 43.4 MCV 86.4 MCH 29.8 MCHC 34.5 RDW 13.6 Plt Count 278 MPV 9.7 Sodium 142 Potassium 3.7 Chloride 110 H Carbon Dioxide 27 Anion Gap 5 L BUN 9.9 Creatinine 0.7 Est GFR (CKD-EPI)AfAm 110.82 Est GFR (CKD-EPI)NonAf 95.61 Random Glucose 110 H Calcium 8.6 Phosphorus 2.6 Magnesium 2.4 Active Medications Generic Name Dose Route Start Last Admin Trade Name Freq PRN Reason Stop Dose Admin Atorvastatin Calcium 20 mg 08/24/18 22:00 08/25/18 22:14 Lipitor - PO 20 mg HS FARRUKH Administration Heparin Sodium (Porcine) 5,000 unit 08/24/18 22:00 08/26/18 13:29 Heparin - SQ 5,000 unit TID FARRUKH Administration Levothyroxine Sodium 25 mcg 08/25/18 10:00 08/26/18 09:21 Synthroid - PO 25 mcg DAILY FARRUKH Administration Losartan Potassium 100 mg 08/25/18 11:00 08/26/18 09:21 Cozaar - PO 100 mg DAILY FARRUKH Administration Meclizine HCl 25 mg 08/24/18 22:00 08/26/18 13:29 Antivert - PO 25 mg TID FARRUKH Administration Metoprolol Succinate 50 mg 08/25/18 10:00 08/26/18 09:21 Toprol Xl - PO 50 mg DAILY FARRUKH Administration ASSESSMENT/PLAN: Pt is a 72 y/o M with a significant past medical history of HLD and HTN who presented to [facility] due to a 3 day h/o vertiginous symptoms. #Vertigo 2/2 posterior stroke, vestiblitis , or BPV. -Meclizine 25 mg PO TID -Repeat Brain MRI, MRA neck shows no infarction or abnormalities -Graham OLVERA -Neurology on board--> Dr Bojorquez: Unlikely CVA #HTN -Losartan 100 Daily -Metoprolol XL 50 Daily #HLD -Atorvastatin 20 Daily FEN -NS@100cc/hr -Monitor Electrolytes -Salt Controlled Diet DVT ppx: -Heparin SQ 5k units TID Dispo: -admit Med-Surg -Patient agrees for SNF placement; CASSANDRA sent, needs 3 midnights per [facility] Visit type - Emergency Visit Emergency Visit: Yes ED Registration Date: 08/24/18 Care time: The patient presented to the Emergency Department on the above date and was hospitalized for further evaluation of their emergent condition. - New Patient This patient is new to me today: Yes Date on this admission: 08/26/18 - Critical Care Critical Care patient: No - Discharge Referral Referred to [facility] Med P.C.: No
[2018-08-26 20:06] VITALS: TEMP 98.4
[2018-08-26] MEDS: ATORVASTATIN CA 20 MG TABLET (FP) PO SCH (21:32)
[2018-08-27] MEDS: MECLIZINE HCL 25 MG TABLET (FP) PO SCH ×2 (06:04→13:24)
[2018-08-27] MEDS: HEPARIN NA (PORCINE) 5,000 UNITS/ML 1ML VIAL SQ SCH ×2 (06:04→13:23)
[2018-08-27] MEDS: LOSARTAN POTASSIUM 50 MG TABLET (FP) PO SCH (09:23)
[2018-08-27] MEDS: LEVOTHYROXINE NA 25 MCG TABLET (FP) PO SCH (11:12)
[2018-08-27 11:52] VITALS: BP 150/81; PULSE 72
--- NOTE | 2018-08-27 12:43 | PN ---
Progress Note (short form) - Note Progress Note: Subjective: feels muchbetter . minimal dizziness with walking. no N/v , no weakness Objective: Vital Signs: Last Vital Signs Temp Pulse Resp BP Pulse Ox 98.4 F 72 20 150/81 98 08/27/18 10:00 08/27/18 10:00 08/27/18 10:00 08/27/18 10:00 08/27/18 07:27 Physical Exam: NAD CV: RRR, no MRG Lungs: CTAB Ext : R LE muscle atrophy. No edemaa or erythema Neuro: EOMI, round equal pupils, reactive to light, + minimal horizontal nystagmus ( R lateral gaze), No vertical nystagmus . no facial droop. tongue at mid line. nl shoulder shrug. UE: 5/5 proximally and distally. RLE: hip flexion 5/5 , knee flexion and extension 5/5. ankle dorsiflexion 4/5, ankle plantar flexion 5/5 LLE: hip flexion 5/5 , knee flexion and extension 5/5. ankle dorsiflexion 5/5, ankle plantar flexion 5/5 Reflexes; 2+ knee jerk , and 2+ biceps. 2+ BR. ASSESSMENT AND PLAN: 72 y/o man with h/o HTN, and HLP,Polio with residual RLE weakness who presented with vertigo, unsteady gait and nausea/Vomiting . 1- Severe Vertigo: significantly improved with meclizine. - MRI of brain and MRA of neck showed no abnormality - cont meclizine PRN at dc - f/u with ENT and neuro - PT at home arranged for EPLY Maneuver 2- H/O HTN: cont losartan and toprol 3- HLP : cont lipitor dispo : DC home with [facility]NS for PT. cane was presribed and sent to pharmacy per PT Recs Visit type - Emergency Visit Emergency Visit: Yes ED Registration Date: 08/24/18 Care time: The patient presented to the Emergency Department on the above date and was hospitalized for further evaluation of their emergent condition. - New Patient This patient is new to me today: No - Critical Care Critical Care patient: No
--- NOTE | 2018-08-27 13:34 | PN ---
Progress Note (short form) - Note Progress Note: 72 year old male history fo HTN,HLD. He came for feeling vertigo feeling. He denies any headhace, no dysphagia, dysarthria, no diplopia, no weakness or numbmess. He is getting nasuea and vomting. It is worse when he gets up. He describes as spinning senation. His ct head is normal. his mri ofbrain ( [facility] imaging ) normal. H ecould not do mri of brain. Patient is slightly better. He is feeling better and he is being discharged. Neurological Examination Alert oriented x 3, speech is normal neck is supple afebrile and normotensive eomi, pupils reactive, there is mild right sided nystagmus Right leg is weaker due to childhood bppv ct head and mri of brain is unremarkable Assessment/Plan 1. Most likley BPPV, Clinically unlikely to be stroke or cerebellar dysfunction. Plan: continue syptomatic treatment,meclizine prn , follow up otupatient Patient is feeling better. Thanking you so much Bert Bojorquez MD
--- NOTE | 2018-08-28 17:36 | DS ---
Physical Exam: SUBJECTIVE: Patient seen and examined OBJECTIVE: PHYSICAL EXAM GENERAL: The patient is awake, alert, and fully oriented, in no acute distress. HEAD: Normal with no signs of trauma. EYES: PERRL, extraocular movements intact, sclera anicteric, conjunctiva clear. ENT: Ears normal, nares patent, oropharynx clear without exudates, moist mucous membranes. NECK: Trachea midline, full range of motion, supple. LUNGS: Breath sounds equal, clear to auscultation bilaterally, no wheezes, no crackles, no accessory muscle use. HEART: Regular rate and rhythm, S1, S2 without murmur, rub or gallop. ABDOMEN: Soft, nontender, nondistended, normoactive bowel sounds, no guarding, no rebound, no hepatosplenomegaly, no masses. EXTREMITIES: 2+ pulses, warm, well-perfused, no edema. NEUROLOGICAL: Cranial nerves II through XII grossly intact. Normal speech, gait not observed. PSYCH: Normal mood, normal affect. SKIN: Warm, dry, normal turgor, no rashes or lesions noted. LABS HOSPITAL COURSE: Date of Admission:08/24/18 Date of Discharge: 08/28/18 Discharge Summary Reason For Visit: INTERMITTENT VERTIGO Condition: Improved - Instructions Diet, Activity, Other Instructions: You were diagnosed with vertigo ( benign positional vertigo) - use a cane when walking. [facility] pharmacy - please use meclizine if you need it for vertigo - follow with Dr. Bojorquez for that - please follow with Dr. Gutierrez, ENT. - you need PT to help with your gait nad the apply vestibular rehab ( EPly maneuver) Referrals: Dion Bojorquez MD [Staff Physician] - 1 Week Shine Gutierrez MD [Staff Physician] - 1 Week Disposition: VNS/HOME HEALTH CARE - Home Medications Comprehensive Discharge Medication List: Ambulatory Orders Atorvastatin Ca [Lipitor] 20 mg PO HS 08/24/18 Levothyroxine [Synthroid -] 25 mg PO DAILY 08/24/18 Losartan Potassium [Cozaar] 100 mg PO DAILY 08/24/18 Metoprolol Succinate [Toprol Xl] 50 mg PO DAILY 08/24/18 Cane 1 each MC DAILY #1 each 08/27/18 Meclizine HCl 25 mg PO Q8H PRN #20 tablet 08/27/18 Meclizine HCl 25 mg PO Q8H PRN #20 tablet 08/27/18 - Discharge Referral Referred to [facility] No
== END 2018-08-27 14:28 | disposition home health service (06) | DRG 149 ==
LOC: JER 11:50 → JERBED 16:58 → J8W 20:15
PROVIDERS: ADMIT Internal Medicine; ATTEND Internal Medicine
DX: H81.10 Benign paroxysmal vertigo, unspecified ear (principal); I10 Essential (primary) hypertension; E78.5 Hyperlipidemia, unspecified
CPT/HCPCS: 36415; 70450-TC; 70547-TC; 70551-TC; 80048; 80053; 81003; 83735; 84100; 84443; 85025; 85027; 85610; 85730; 93005; 93010; 97116-GP; 97161-GP; 99283-25; J1644; J7030